=== PATIENT | female | born 1935 | race Caucasian/White ===

== ENCOUNTER 2017-01-20 23:52 | Emergency (ER) | payer OTHER ==
[~2017-01-20] VITALS: Ht 167.6 cm; Wt 74.4 kg
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
--- OUTSIDE RECORDS SUMMARY | 2017-01-21 00:10 | External Medical Summary Rpt | CCD ---
Author Author [employer] Organization [employer] Address Unknown Phone Unavailable Purpose Continuity of Care Document - through 2016
--- OUTSIDE RECORDS SUMMARY | 2017-01-21 00:10 | External Medical Summary Rpt | CCD ---
Author Author , KRISTIAN Organization KRISTIAN Address Unknown Phone [email or web address] Immunization Name Date Rout CVX Reac Dose Comm Prov Is Faci e tion ent ider Refu lity Give sed n Td 03- 9 999 Hist H149 No H149 (pj 3-19 ori lt), 97 al Info adso rmat rbed ion - Sour ce Unsp ecif ied
--- OUTSIDE RECORDS SUMMARY | 2017-01-21 00:10 | External Medical Summary Rpt ---
Author Author MI[employer], [employer] Organization [employer] Address Unknown Phone Unavailable
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
[2017-01-21] MEDS ORDERED: AMARYL 4MG. TAB4 MG PO (00:11)
[2017-01-21] MEDS ORDERED: EVISTA60 MG PO (00:11)
[2017-01-21] MEDS ORDERED: METFORMIN1000 MG PO (00:11)
[2017-01-21] MEDS ORDERED: VITAMIN D1000 IU PO (00:13)
[2017-01-21] MEDS ORDERED: METOPROLOL25 MG PO (00:13)
--- NOTE | 2017-01-21 00:21 | Emergency Room Report ---
History of Present Illness Time Seen by [id number] Presenting Problem in Triage Pt arrived:Wheelchair Presenting Problem:PATIENT FELL ON FACE, DENIES ANY LOC, UNSURE OF WHY SHE FELL. LACERATION TO RIGHT EYE WITH SWOLLEN AREA. 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 N Clinical Suspician of Infection? N Mental Status: 1 - Regular (Normal Baseline) Sepsis Risk:Low Sepsis Risk Have you (or family members/close friends) recently traveled outside the [place]? N If Yes, where/when: Have you had exposure to infectious disease within the past month? N TB? Other? Specify: Source patient, RN notes reviewed, family, old records Exam Limitations no limitations Comment reported trip fall at home with facial injury but no loc and no neck pain- she also c/o rt sided ant chest pain - no hip pain and no abd pain - she denied syncope Cardiac Chest Pain Chest pain indicative of cardiac No Timing/Duration this evening Severity moderate ALLERGIES Coded Allergies: pioglitazone (From [employer]) (01/21/17) sitagliptin (From [employer]) (01/21/17) Home Medications Reported Medications Glimepiride (Amaryl 4MG) 4 MG PO DAILY METFORMIN HCL (Metformin) 1,000 MG PO DAILY RALOXIFENE HCL (Evista) 60 MG PO DAILY Metoprolol Tartrate (Metoprolol) 12.5 MG PO DAILY PRN BP CHOLECALCIFEROL (VITAMIN D3) (Vitamin D3) 1,000 IUNITS PO DAILY Tramadol Hcl (Tramadol 50MG) 50 MG PO QID History Medical History General Angina: No MO: No Hyperlipidemia? Yes CHF? No COPD? No Asthma? No Hernia? Yes CVA? No Seizures? No Diabetes? Yes UTI? No Stones? No GB Disease: No Hepatitis? No Cataracts? No Glaucoma? No TB? No Immunization Hx DT/Tetanus Unknown Surgical Hx Previous Surgery?Y HYSTERECTOMY LT BREAST LUMPECTOMY Family History Family Hx Diabetes No CAD Yes Hypertension No Hyperlipidemia No Cancer Yes TB No Social History Smoking Hx Smoker: Former Smoker Tobacco: No Alcohol Alcohol: No Drugs none Review of Systems All Other Systems Reviewed and Negative Constitutional denies fever Eyes denies drainage ENT denies: ear discharge, nose congestion, throat pain. Respiratory denies cough, denies shortness of breath Cardiovascular denies chest pain, denies syncope Gastrointestinal denies abdominal pain, denies diarrhea, denies vomiting Genitourinary denies: dysuria, frequency, hesitancy, hematuria. Musculoskeletal denies back pain, denies joint pain, denies joint swelling, denies neck pain Skin denies rash Psychiatric/Neurological see HPI, denies anxiety, denies seizure, other Physical Exam Vital Signs Vital Signs Date Time Temp Pulse Resp B/P Pulse O2 O2 Flow FiO2 Ox Delivery Rate 01/21 0142 90 16 136/80 92 01/21 0002 98.0 93 18 145/83 97 - WBC >12,000 or <4,000 or 10% bands? 2 or more SIRS Criteria Met? B/P:136/80 MAP:103 Creatinine >2.0? UA output<0.5ml/kg/hr for 2 hrs? Platelet count >100,000? Lactate >2.0mmol/1? INR >1.2 or PTT > than 60 sec? Evidence of Organ Dysfunction? Provider documented clinical suspician of infection? N Sepsis Criteria Count: 1 Sepsis Risk: Low Sepsis Risk General Appearance no apparent distress Eye Exam - bilateral eye PERRL, bilateral eye EOMI Ear, Nose, Throat tender facial area with no active epistaxsis and no drainage from nose and no sq air Neck non-tender Respiratory Status Yes: tender on palpation. No: respiratory distress. Lung Sounds bilateral: lungs clear. Cardiovascular regular rate/rhythm, systolic murmur Peripheral Pulses Pulses normal Yes Gastrointestinal soft Extremities normal inspection, pelvis stable Strength 4 Upper Ext (L), 4 Upper Ext (R), 4 Lower Ext (L), 4 Lower Ext (R) Neurologic alert, rehabilitation assistant II-XII nml as tested, no motor/sensory deficits Glascow Coma Scale Glascow Coma Scale Response Value EYE response: 4 Spontaneously 4 MOTOR response: 6 OBEYS 6 VERBAL response: 5 Oriented & Converses 5 Total 15 Reflexes Reflexes normal Yes Mental status normal mood/affect Skin laceration(s), 0.5 cm facial lac Medical Decision Making LABS/Meds/Orders Pt receiving controlled substance in ED? No Results/Orders Laboratory Tests 01/21/17 0103: POC Glucose 171 H 01/21/17 0025: Sodium 135 L, Potassium 3.7, Chloride 102, Carbon Dioxide 29, BUN 10, Creatinine 0.8, Estimated Creat Clear 63, Estimated GFR (MDRD) 69, Glucose 167 H, Calcium 8.3 L, Total Bilirubin 0.4, AST 18, ALT 15, Alkaline Phosphatase 62, Creatine Kinase 40, CK-MB (CK-2) Rel Index 1.3, CK and CKMB Interp < 0.5, Troponin I < 0.02, Total Protein 6.6, Albumin 3.3 L, Globulin 3.3 H, Albumin/ Globulin Ratio 1.0 L, WBC 5.4, RBC 4.26, Hgb 12.6, Hct 39.3, MCV 92.4, RDW 12.7 , Plt Count 191, MPV 8.3, Gran % 48.8, Gran # 2.7, Lymphocytes % 39.5, Monocytes % 6.6, Eosinophils % 4.3, Basophils % 0.7, Lymphocytes # 2.1, Monocytes # 0.4, Eosinophils # 0.2, Basophils # 0.0, PUBS MCHC 32.0, MCH 29.6 Current Medication Orders Sig/Alvin Start time Last Medication Dose Route Stop Time Status Admin Diphtheria/Pertussis/ 0 .STK-MED ONE 01/21 011 DC Tetanus Vacc IM Diphtheria/Pertussis/ 0.5 ML ONCE ONE 01/21 100 DC 01/21 Tetanus Vacc IM 01/21 101 0114 Acetaminophen 0 .STK-MED ONE 01/21 0031 DC PO Sodium Chloride 10 ML PRN PRN 01/21 0030 AC IV 01/22 0016 Acetaminophen 0 .STK-MED ONE 01/21 0029 DC PO Acetaminophen 650 MG ONCE ONE 01/21 0015 DC 01/21 PO 01/21 0016 0033 Orders Procedure Date/time Status DIET-NOTHING BY MOUTH 01/21 B Active FINGERSTICK BLOOD SUGAR 01/[address] SINUS (MAX-FACIAL W/O CONT) 01/[address] HEAD W/O CONTRAST 01/[address] CHEST W/O CONTRAST 01/[address] SCAN REQ 01/21 22 Complete ELECTROCARDIOGRAM REQUEST 01/[address] HEAD REQ 01/22 16 Complete CHEST-AP VIEW ONLY 01/22 16 Active IV SALINE LOCK 01/22 16 Active CBC WITH AUTO DIFF 01/22 16 Complete CARDIAC ENZYMES 01/22 16 Complete CHEM 12 PROFILE 01/22 16 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 ST/Twave chgs XRAY/CT/US XRAY/CT/US 1 XRAY chest XR interpretation by reviewed by me Xray Results abnormal (cm) XRAY/CT/US 2 CT head, chest, sinus CT interpretation by discussed w/radiologist Time results known: 0202 CT Results abnormal (facial fx ) Procedures Laceration/Wound Repair Laceration/Wound Repair Risks/benefits discussed with pt/guardian? Yes Tetanus status up to date Wound Location face Wound Length (cm) 0.5 Wound's Depth, Shape superficial Wound Explored no FB identified Risk of retained FB explained to pt/guardian? Yes Irrigated w/ Saline (ccs) 0 Wound Prep Hibiclens Volume Anesthetic (ccs) 0 Wound Debrided none Wound Repaired With Dermabond Layer Closure No Total Number Sutures 0 Sterile Dressing Applied Yes Splint Applied No Sling Applied No Departure Departure Time of Disposition 202 Disposition DC Home or Self Care(routine) Clinical Impression Primary Impression: Facial fracture due to fall Qualifiers: Encounter type: initial encounter Fracture type: closed Qualified Code: S02.92XA - Unspecified fracture of facial bones, initial encounter for closed fracture Secondary Impressions: Closed pterygoid plate fracture Contusion, chest wall Facial laceration Qualifiers: Encounter type: initial encounter Qualified Code: S01.81XA - Laceration without foreign body of other part of head, initial encounter Nasal fracture Qualifiers: Encounter type: initial encounter Fracture type: closed Qualified Code: S02.2XXA - Fracture of nasal bones, initial encounter for closed fracture Condition STABLE Referrals Adolph Evans MD (Family) Patient Instructions DI for Facial Fracture Additional Instructions call and see pcp and ent for follow up Discharge Counseling Counseled pt/family regarding diagnosis, test results, follow up needs ED Critical Care Critical Care No at 0206
[2017-01-21] MEDS ORDERED: TRAMADOL 50MG T50 MG PO (00:37)
[2017-01-21 00:38] LABS: HEMOGLOBIN 12.6 g/dL (12.2-16.2); LYMPH # 2.1 K/mm3 (0.7-4.5); LYMPH % 39.5 % (10-50.0)
[2017-01-21 01:06] LABS: BUN 10 mg/dL (7-18); GFR (ESTIMATED) 69 ML/MIN (59-)
[2017-01-21 02:27] VITALS: BP 130/78
--- NOTE | 2017-01-21 06:38 | RADIOLOGY REPORT PS360 ---
CHEST-AP VIEW ONLY HISTORY: Chest pain FALL ORDERING PHYSICIAN: Allan Ojeda MD PATIENT AGE: 81 years COMPARISON: 03/06/2012 FINDINGS: The cardiomediastinal silhouette and pulmonary vascularity are within normal limits. The lungs are clear without infiltrates, suspicious nodules, or pleural effusions. No acute bony abnormalities. IMPRESSION: Negative chest, no acute finding
--- NOTE | 2017-01-21 07:40 | RADIOLOGY REPORT PS360 ---
CT HEAD W/O CONTRAST HISTORY: Headache, head pain following injury, contusion, abrasion FALL ORDERING PHYSICIAN: Allan Ojeda MD PATIENT AGE: 81 years COMPARISON: None TECHNIQUE: Axial images obtained without contrast. Brain and bone windows reviewed. FINDINGS: No midline shift, mass effect, intracranial hemorrhage, hydrocephalus, or extra-axial fluid collection is evident. There is generalized atrophy with periventricular ischemic gliotic changes. No intra or extra-axial mass or hemorrhage. No acute calvarial fracture. There are bilateral sinus air-fluid levels within the maxillary sinuses with hyperdensity of the right maxillary fluid consistent with hemorrhage. Air is present in the left survey analyst space adjacent to the lateral wall the left maxillary sinus consistent with underlying fracture. Please see facial bone CT for further description there is an air-fluid level in the right maxillary sinus. IMPRESSION: 1. No acute intracranial findings. 2. There are bilateral sinus air-fluid levels within the maxillary sinuses with hyperdensity of the right maxillary fluid consistent with hemorrhage. Air is present in the left survey analyst space adjacent to the lateral wall the left maxillary sinus consistent with underlying fracture. Bilateral maxillary sinus air-fluid levels PLEASE SEE FACIAL BONE CT FOR FURTHER DESCRIPTION .
--- NOTE | 2017-01-21 07:40 | RADIOLOGY REPORT PS360 ---
CT HEAD W/O CONTRAST HISTORY: Headache, head pain following injury, contusion, abrasion FALL ORDERING PHYSICIAN: Allan Ojeda MD PATIENT AGE: 81 years COMPARISON: None TECHNIQUE: Axial images obtained without contrast. Brain and bone windows reviewed. FINDINGS: No midline shift, mass effect, intracranial hemorrhage, hydrocephalus, or extra-axial fluid collection is evident. There is generalized atrophy with periventricular ischemic gliotic changes. No intra or extra-axial mass or hemorrhage. No acute calvarial fracture. There are bilateral sinus air-fluid levels within the maxillary sinuses with hyperdensity of the right maxillary fluid consistent with hemorrhage. Air is present in the left irrigation tax assessor collector space adjacent to the lateral wall the left maxillary sinus consistent with underlying fracture. Please see facial bone CT for further description there is an air-fluid level in the right maxillary sinus. IMPRESSION: 1. No acute intracranial findings. 2. There are bilateral sinus air-fluid levels within the maxillary sinuses with hyperdensity of the right maxillary fluid consistent with hemorrhage. Air is present in the left irrigation tax assessor collector space adjacent to the lateral wall the left maxillary sinus consistent with underlying fracture. Bilateral maxillary sinus air-fluid levels PLEASE SEE FACIAL BONE CT FOR FURTHER DESCRIPTION .
--- NOTE | 2017-01-21 07:46 | RADIOLOGY REPORT PS360 ---
CT SINUS (MAX-FACIAL W/O CONT) CLINICAL INDICATION: Maxillary pain, nose pain, facial swelling following injury FALL ORDERING PHYSICIAN: Allan Ojeda MD PATIENT AGE: 81 years COMPARISON: None TECHNIQUE:Axial, sagittal, and coronal images are generated and reviewed without contrast FINDINGS: There are bilateral maxillary sinus air-fluid levels with hyperdensity of the right maxillary fluid consistent with underlying hemorrhage. Bilateral nondisplaced fractures involving the anterior wall of the maxillary sinuses. Nondisplaced fracture involves the inferolateral wall the left maxillary sinus. Nondisplaced fracture involves the lateral aspect of both pterygoid plates nondisplaced. Nondisplaced fractures present involving the inferomedial wall the left maxillary sinus. Fracture involves the inferolateral wall the right floor the orbit. Gas is present in the left z os mainframe systems programmer space. There is soft tissue swelling in the right frontal region of the scalp. Nondisplaced fracture noted of the nasal bone bilaterally with overlying soft tissue swelling. The globes have an unremarkable appearance. IMPRESSION: Bilateral maxillary sinus and pterygoid plate fractures as well as fracture of the right inferior orbital wall and nondisplaced nasal bone fracture with layering hemorrhage in the maxillary sinuses
--- NOTE | 2017-01-21 07:46 | RADIOLOGY REPORT PS360 ---
CT SINUS (MAX-FACIAL W/O CONT) CLINICAL INDICATION: Maxillary pain, nose pain, facial swelling following injury FALL ORDERING PHYSICIAN: Allan Ojeda MD PATIENT AGE: 81 years COMPARISON: None TECHNIQUE:Axial, sagittal, and coronal images are generated and reviewed without contrast FINDINGS: There are bilateral maxillary sinus air-fluid levels with hyperdensity of the right maxillary fluid consistent with underlying hemorrhage. Bilateral nondisplaced fractures involving the anterior wall of the maxillary sinuses. Nondisplaced fracture involves the inferolateral wall the left maxillary sinus. Nondisplaced fracture involves the lateral aspect of both pterygoid plates nondisplaced. Nondisplaced fractures present involving the inferomedial wall the left maxillary sinus. Fracture involves the inferolateral wall the right floor the orbit. Gas is present in the left upholstery parts sorter space. There is soft tissue swelling in the right frontal region of the scalp. Nondisplaced fracture noted of the nasal bone bilaterally with overlying soft tissue swelling. The globes have an unremarkable appearance. IMPRESSION: Bilateral maxillary sinus and pterygoid plate fractures as well as fracture of the right inferior orbital wall and nondisplaced nasal bone fracture with layering hemorrhage in the maxillary sinuses
--- NOTE | 2017-01-21 07:51 | RADIOLOGY REPORT PS360 ---
CT CHEST W/O CONTRAST HISTORY: Chest pain following injury, sternal pain, right anterior chest pain FALL ORDERING PHYSICIAN: Allan Ojeda MD PATIENT AGE: 81 years TECHNIQUE: Helical acquisition obtained following the intravenous administration of 75 mL of Isovue 370 .. Axial, sagittal, and coronal reformatted images are generated and reviewed. COMPARISON: None FINDINGS: Vascular evaluation is limited without IV contrast. No obvious mediastinal hematoma. Cannot adequately evaluate the aorta for posttraumatic changes without contrast. No obvious pseudoaneurysm. There is mild ectasia of the ascending aorta measuring up to 3.9 cm. There are coronary artery calcifications. No obvious pericardial effusion. There is mild cardiomegaly. Mild dependent changes are present in the lung bases. There is no evidence of pneumothorax or pulmonary contusion or pleural effusion. No obvious acute fracture. The sternum has an unremarkable appearance. Upper abdominal images show no acute finding with limited evaluation of solid organs for trauma without contrast. There is a small hiatal hernia. IMPRESSION: No acute thoracic findings. Please see above for detail Coronary artery disease with mild cardiomegaly and mild ectasia of the ascending aorta
== END 2017-01-21 02:28 | disposition home or self-care (01) ==
LOC: ER 23:52
PROVIDERS: Emergency Medicine
DX: S02.2XXA Fracture of nasal bones, initial encounter for closed fracture (principal); S02.92XA Unspecified fracture of facial bones, initial encounter for closed fracture; S01.119A Laceration without foreign body of unspecified eyelid and periocular area, initial encounter; R07.9 Chest pain, unspecified; E11.9 Type 2 diabetes mellitus without complications; W05.0XXA Fall from non-moving wheelchair, initial encounter; Z23 Encounter for immunization; Y93.9 Activity, unspecified; Y92.009 Unspecified place in unspecified non-institutional (private) residence as the place of occurrence of the external cause; Z88.8 Allergy status to other drugs, medicaments and biological substances; Z90.710 Acquired absence of both cervix and uterus; Z87.891 Personal history of nicotine dependence; Z79.84 Long term (current) use of oral hypoglycemic drugs; Z79.899 Other long term (current) drug therapy
CPT/HCPCS: G0168